=== PATIENT | male | born 1970 ===

== ENCOUNTER 2020-05-10 07:39 | Outpatient (CLI) | payer OTHER, SELFPAY ==
[2020-05-12 21:32] LABS: SARS-CoV-2 RNA Undetected (Undetected); SARS-CoV-2 Specimen Source Nasopharynx
== END 2020-05-10 07:59 ==
PROVIDERS: Visit Provider Family Medicine
DX: Z11.59 Encounter for screening for other viral diseases (principal)
CPT/HCPCS: U0003

== ENCOUNTER 2020-08-26 02:51 | Outpatient (CLI) | payer OTHER, SELFPAY ==
--- NOTE | 2020-08-26 | DI.US_ITS ---
APPROVED REPORT EXAM: Comprehensive 2D, Doppler, and color-flow Echocardiogram Patient Location: Out-Patient Activity Specialist: Li Castro RDCS (AE) Indications: Murmur Other Information Study Quality: Good Conclusion Left Ventricle : Left ventricle is mildly dilated. The left ventricular systolic function is normal. The left ventricular ejection fraction is within the normal range. There is normal left ventricular w all thickness. There is normal LV segmental wall motion. The left ventricular diastolic function is n ormal. LVEF is 65%. Right Ventricle : The right ventricle is normal size. The right ventricular systolic function is norm al. The RVSP is 22.4mmHg. Atria : Left atrium is mildly dilated. The right atrium size is normal. Aortic Valve : The aortic valve is normal in structure. Aortic valve is trileaflet. There is no aorti c valvular stenosis. No aortic regurgitation is present. Mitral Valve : The mitral valve is normal in structure. No evidence of mitral valve stenosis. Moderat e mitral regurgitation directed anteriorly. Mitral regurgitation jet is anteriorly directed. Mild m itral valve prolapse of posterior leaflet. Great Vessels : The aortic root is normal in size. The ascending aorta is normal in size. Aortic arch is normal in caliber. IVC is normal in size and collapses >50% with inspiration. There is no prior study available for comparison. Wall motion Left Ventricle Left ventricle is mildly dilated. The left ventricular systolic function is normal. The left ventricu lar ejection fraction is within the normal range. There is normal left ventricular wall thickness. Th ere is normal LV segmental wall motion. The left ventricular diastolic function is normal. There is n o ventricular septal defect visualized. LVEF is 65%. Right Ventricle The right ventricle is normal size. The right ventricular systolic function is normal. The RVSP is 22 .4mmHg. Atria Left atrium is mildly dilated. The right atrium size is normal. The interatrial septum is intact with no evidence for an atrial septal defect. Aortic Valve The aortic valve is normal in structure. Aortic valve is trileaflet. There is no aortic valvular sten osis. No aortic regurgitation is present. Mitral Valve The mitral valve is normal in structure. No evidence of mitral valve stenosis. Moderate mitral regurg itation directed anteriorly. Mitral regurgitation jet is anteriorly directed. Mild mitral valve prol apse of posterior leaflet. Tricuspid Valve The tricuspid valve is normal in structure. There is no tricuspid valve stenosis. Trace tricuspid reg urgitation. Pulmonic Valve The pulmonary valve is normal in structure. There is no pulmonic valvular stenosis. Trace pulmonic re gurgitation. Great Vessels The aortic root is normal in size. The ascending aorta is normal in size. Aortic arch is normal in ca liber. IVC is normal in size and collapses >50% with inspiration. Pericardium There is no pericardial effusion. 2D Dimensions IVSD d PLAX 0.90 cm M: 0.6-1.2 LV Vol A2C d MOD 235.8 mL LVPW d PLAX 0.85 cm M: 0.6 - 1.2 LV Vol A4C d MOD 246.9 mL LVID d PLAX 6.34 cm M: 4.2 - 5.8 LA vol/ BSA A2C s A-L 46.3 mL/m2 LVDs 3.85 cm M: 2.5 - 4.0 LA vol/ BSA A4C s A-L 57.0 mL/m2 Ao Root d 2.91 cm M: 3.1 - 3.7 LA Vol/ BSA Biplane s A-L 53.6 mL/m2 RA Area A4C 20.19 cm2 LA Area A4C s MOD 30.57 cm2 RA Vol/ BSA A4C s A-L 29.1 mL/m2 LA Area A2C s MOD 26.45 cm2 Ao Asc Diam d 3.23 cm M: 2.6 - 3.4 LV EF A4C MOD 64.9 % LV EF Teichholz 67.9 % LV EF A2C MOD 64.0 % LVEF (Quinonez's) 64.95 % M: 52 - 72 LV EF Biplane MOD 65.0 % LV Volume 182.85 mL M: 62 - 150 SV 159.99 mL LV Volume Index 88.76 mL/m2 M: 34 - 74 SV Index 77.54 mL/m2 LV Vol Biplane MOD 246.3 mL FS 38.65 % M-Mode TAPSE 3.75 cm (M/F) >1.7 LV Diastology MV E' medial 0.163 (>0.07 m/s) E/A Ratio 1.8 LV E/e MED 8.65 (<14) MV E Vmax 1.41 (0.4-1.3 m/s) MV E' lateral 0.132 (>0.1 m/s) MV A Vmax 0.80 (0.4-1.3 m/s) LV E/e LAT 10.70 (<14) MV E/A Ratio 1.68 MV E/E' medial 8.69 MV E/E' lateral 10.70 Aortic Valve LVOT Area 3.84 cm2 AoV Area Vmax 3.35 cm2 LVOT Vmax 1.14 m/s AoV Area/ BSA (Vmax) 1.62 cm2/m2 LVOT Mean Hay. 0.75 m/s CLEO Mean Hay. 3.16 cm2 LVOT Peak Grad 5.2 mmHg CLEO Mean Hay. Index 1.53 cm2/m2 LVOT Mean Grad 2.6 mmHg LVOT VTI 0.225 m LVOT Diam s 2.20 cm AoV Vmax 1.30 m/s Velocity Ratio 0.87 AoV Mean Hay. 0.91 m/s AoV Peak Grad 6.8 mmHg LVOT SV 86.44 mL AoV Mean Grad 3.7 mmHg AoV VTI 0.217 m AoV Area VTI 3.98 cm2 AoV Area/ BSA (VTI) 1.93 cm/m2 Mitral Valve MV DT 236 (160-240 msec) MR Vmax 4.86 m/s MV PHT 68 msec MR VTI 1.357 m MV Area PHT 3.21 cm2 MR Peak Grad 94.7 mmHg MV VTI 0.396 m MR Mean Grad 61.2 mmHg MV VTI Annulus 0.405 m MV Area VTI 2.23 (4.0-6.0 cm2) Pulmonary Valve PV Vmax 1.05 (0.5-1.5 m/s) RVOT Peak Gr. 2.08 mmHg PV Peak Grad 4.4 mmHg RVOT Mean Gr. 0.95 mmHg PV Mean Grad 2.5 mmHg RVOT VTI 0.143 m PV VTI 0.230 m RVOT Vmax 0.72 m/s Tricuspid Valve TR Peak Grad 19.3 mmHg TR Vmax 2.20 m/s RA Pressure 3.00 mmHg RVSP (TR) 22.4 mmHg
== END 2020-08-26 03:11 ==
PROVIDERS: Visit Provider Family Medicine
DX: I34.0 Nonrheumatic mitral (valve) insufficiency (principal)
CPT/HCPCS: 93306